=== PATIENT | male | born 1955 | race Caucasian/White ===

== ENCOUNTER 2018-01-20 10:40 | Emergency (ER) | payer BC ==
[2018-01-20 10:50] VITALS: BP 164/99
--- NOTE | 2018-01-20 11:15 | UC ---
Génesis Garcia Julia, scribed for Mack Dial MD on 01/20/18 at 1059 . Skin Complaint HPI - HPI Summary HPI Summary: A 62 year old M presents to [facility] with a chief complaint of worsening swelling and pain of the right neck for the past two days after a bug bit him. Pain is 3/10 in severity, upon triage. - History of Current Complaint Chief Complaint: UCSkin Time Seen by Provider: 01/20/18 10:53 Stated Complaint: SORE ON NECK Hx Obtained From: Patient Onset/Duration: Lasting Days Skin Exposure Onset/Duration: Days Ago Timing: Constant Onset Severity: Mild Current Severity: Moderate Pain Intensity: 3 Pain Scale Used: 0-10 Numeric Location: Other - right neck Character: Swelling, Pain Alleviating Factor(s): Nothing Related History: Possible Reaction to: Insect - Allergy/Home Medications Allergies/Adverse Reactions: Allergies Allergy/AdvReac Type Severity Reaction Status Date / Time No Known Allergies Allergy Verified 01/20/18 10:50 Home Medications: Home Medications Tiotropium CAP.INH* [Spiriva CAP.INH*] 1 puff .ROUTE DAILY 01/20/18 [History Confirmed 01/20/18] Review of Systems Constitutional: Negative Musculoskeletal: Edema - right neck, Myalgia - right neck All Other Systems Reviewed And Are Negative: Yes PMH/Surg Hx/FS Hx/Imm Hx Cancer History: Prostate Cancer - Surgical History Surgical History: Yes Surgery Procedure, Year, and Place: prostate - Family History Known Family History: Negative: Diabetes - Social History Alcohol Use: None Substance Use Type: None Smoking Status (MU): Former Smoker Physical Exam - Summary Physical Exam Summary: VITAL SIGNS: Reviewed. GENERAL: Patient is a well-developed and nourished malewho is lying comfortable in the stretcher. Patient is not in any acute respiratory distress. HEAD AND FACE: Normocephalic EYES: PERRLA, EOMI x 2. EARS: Hearing grossly intact. MOUTH: Oropharynx within normal limits. NECK: Supple, trachea is midline, no adenopathy, no JVD, no carotid bruit. CHEST: Symmetric, no tenderness at palpation LUNGS: Clear to auscultation bilaterally. No wheezing or crackles. CVS: Regular rate and rhythm, S1 and S2 present, no murmurs or gallops appreciated. ABDOMEN: Soft, non-tender. Bowel sounds are normal. No abdominal abnormal pulsations. EXTREMITIES: Full ROM in all major joints, no edema, no cyanosis or clubbing. NEURO: Alert and oriented x 3. No acute neurological deficits. Speech is normal and follows commands. SKIN: Dry and warm, Induration of skin to right side of the neck. No abscess formation at this point Triage Information Reviewed: Yes Vital Signs: Initial Vital Signs Temp 98.1 F 01/20/18 10:46 Pulse 91 01/20/18 10:46 Resp 18 01/20/18 10:46 BP 164/99 01/20/18 10:46 Pulse Ox 99 01/20/18 10:46 Vital Signs Reviewed: Yes Course/Dx - Course Course Of Treatment: Patient has an erythema and swelling and the skin induration without abscess formation on the right side of the neck. The patient will be given a prescription for Bactrim. For the cellulitis. Patient was instructed to return to the urgent care or go to the emergency department if the patient develops increasing swelling, pain and worsening of symptoms. - Diagnoses Provider Diagnoses: cellulitis Discharge - Sign-Out/Discharge Documenting (check all that apply): Discharge/Admit/Transfer - discharge - Discharge Plan Condition: Stable Disposition: HOME Prescriptions: Sulfamethox/Trimethoprim DS* [Bactrim DS 800/160 TAB*] 1 tab PO BID #20 tab Patient Education Materials: Cellulitis (ED) Referrals: Mervin Sanz MD [Primary Care Provider] - Additional Instructions: Take medications as instructed Increase your fluid intake Return to the if symptoms worsen - Billing Disposition and Condition Condition: STABLE Disposition: Home The documentation as recorded by the Génesis efrnandez Julia accurately reflects the service I personally performed and the decisions made by , Mack Dial MD.
== END 2018-01-20 11:04 | disposition home or self-care (01) ==
LOC: UCEAST 10:40
DX: L03.221 Cellulitis of neck (principal); Z87.891 Personal history of nicotine dependence
CPT/HCPCS: 99212; G0463

== ENCOUNTER 2018-02-25 10:37 | Emergency (ER) | payer BC ==
[2018-02-25 10:49] VITALS: BP 141/92
--- NOTE | 2018-02-25 11:42 | UC ---
Neck Pain HPI - HPI Summary HPI Summary: patient is complaining of pain in the back of his neck, feels swollen, pain behind the right ear and right side of throat, denies any fever, has been increasing over the last 4 days. No photosensitivity, no nuchal rigiditiy. - History of Current Complaint Chief Complaint: Rick Stated Complaint: NECK PAIN,HEADACHE Time Seen by Provider: 02/25/18 11:17 Hx Obtained From: Patient Onset/Duration Of Injury/Symptoms: Days Mechanism Of Injury: No Known Trauma Timing: Constant Onset/Duration: Sudden Onset, Lasting Days Severity: Moderate Pain Intensity: 6 Character: Aching Aggravating Factors: Movement Alleviating Factors: Nothing Associated Signs & Symptoms: Positive: Swelling, Redness, Headache - Allergies/Home Medications Allergies/Adverse Reactions: Allergies Allergy/AdvReac Type Severity Reaction Status Date / Time No Known Allergies Allergy Verified 02/25/18 10:49 PMH/Surg Hx/FS Hx/Imm Hx Previously Healthy: Yes - Surgical History Surgical History: Yes Surgery Procedure, Year, and Place: prostate - Family History Known Family History: Negative: Diabetes - Social History Alcohol Use: None Substance Use Type: None Smoking Status (MU): Former Smoker Review Of Systems Constitutional: Positive: Fatigue Skin: Positive: Negative Eyes: Positive: Negative ENT: Positive: Sore Throat, Ear Ache Cardiovascular: Positive: Negative Gastrointestinal: Positive: Negative Genitourinary: Positive: Negative Musculoskeletal: Positive: Negative Neurological: Positive: Headache Psychological: Positive: Negative All Other Systems Reviewed And Are Negative: Yes Physical Exam Triage Information Reviewed: Yes Appearance: Well-Nourished, Ill-Appearing, Pain Distress Vital Signs: Initial Vital Signs Temp 98.4 F 02/25/18 10:46 Pulse 101 02/25/18 10:46 Resp 18 02/25/18 10:46 BP 141/92 02/25/18 10:46 Pulse Ox 96 02/25/18 10:46 Vital Signs Reviewed: Yes Eye Exam: Normal ENT: Positive: Pharyngeal erythema - small tonsil stone in right tonsil Dental Exam: Normal Neck: Positive: Tenderness @ - over the psoterior musculature, Enlarged Nodes @ - right cervical Respiratory Exam: Normal Respiratory: Positive: Chest non-tender, Lungs clear, Normal breath sounds Cardiovascular Exam: Normal Cardiovascular: Positive: No Murmur, Pulses Normal, Tachycardia Abdominal Exam: Normal Abdomen Description: Positive: Nontender, No Organomegaly, Soft Bowel Sounds: Positive: Present Musculoskeletal: Positive: Strength Intact, ROM Intact, ROM Limited @, Edema @ - postieror neck feel slightly swollen Neurological Exam: Normal Psychological Exam: Normal Skin: Positive: Other - redness and swelling from base of neck to right side of neck under ear, slightly warm to touch Neck Pain Course/Dx - Course Course Of Treatment: hx obtained, exam performed ,meds reviewed, talked about plan of care with patient, agreed to treat infection at this time, recommend follow up at ER if not improving. - Differential Dx/Diagnosis Differential Dx/HQI/PQRI: Meningitis, Sprain, Strain, Other - cellulitis Provider Diagnoses: cellulitis of scalp and posterior neck Discharge - Sign-Out/Discharge Documenting (check all that apply): Patient Departure - Discharge Plan Condition: Stable Disposition: HOME Prescriptions: Cephalexin CAP* [Keflex CAP*] 500 mg PO TID #21 cap Patient Education Materials: Cellulitis (ED) Referrals: Mervin Sanz MD [Primary Care Provider] - Additional Instructions: You are presenting with signs of an infection on the skin of your neck. I am going to treat you with antibiotics. HOwever, If you are not improving in the next 24-48 hours I recommend you follow up with the ER or your Doctor on Tuesday. If the headache or eye pain gets worse, You develop any sensitivity to light, severe pain with head flexion go straight to the ER> otherwise, Increase your fluid intake, warm compresses to the neck and Ibuprofen or tylneol for headache. - Billing Disposition and Condition Condition: STABLE Disposition: Home
== END 2018-02-25 11:47 | disposition home or self-care (01) ==
LOC: UCEAST 10:37
DX: L03.811 Cellulitis of head [any part, except face] (principal); L03.221 Cellulitis of neck; R53.83 Other fatigue; J02.9 Acute pharyngitis, unspecified; H92.09 Otalgia, unspecified ear; R51 Headache; Z87.891 Personal history of nicotine dependence
CPT/HCPCS: 99212; G0463

== ENCOUNTER 2018-03-30 13:36 | Emergency (ER) | payer BC ==
[2018-03-30] MEDS ORDERED: NS 0.9% 1000 ML* 1,000 ML IV ONE (13:44)
--- NOTE | 2018-03-30 13:57 | ED ---
Neurological HPI - HPI Summary HPI Summary: A 62 y/o M brought in by car presents to ED with c/o L-sided facial droop at possible onset 1230, with last confirmed normal at 0845. Per emre: Pt has been having diffuse abd discomfort for two days without vomiting; as well as radiating back pain. He still had discomfort last night and this AM was still "off." He took Omaprozole approx. 0700 which seemed to help. Last known normal was at 0845 before the emre left for work. She called the pt at 1317 and his voice wasn't normal, he told her that he was trying to drink coffee and it wasn' t going into his mouth. He refused to call an ambulance, so the janette picked up the patient and brought him to the ED. The janette states pt's facial droop and impaired speech is "80% worse" from the 20 minute car ride. Pt states he noticed the sx at approx 1230 when he noticed he was dribbling out of his mouth , couldnt smile or wink. Associated sx: R ear muffled; malaise, nausea, impaired speech. Denies: UE and LE weakness, dysphagia, facial tingling, head trauma, recent falls. Denies medication, blood thinners. Per emre, pt has been taking Advil or Excedrin for the past few days due to CALDERA. Pt was seen at [facility] on 02/25 with dx R ear cellulitis. PMHx: caffeine-withdrawl CALDERA behind L eye, GERD, prostate CA; neg: CVA. Denies surgeries in past 6 months. Prostate surgery in 2009. Former smoker and former ETOH. Pt has no hx DM, HTN, and no recent viral infection, no current URI sxs. Dr. Trejo, neuro, at bedside at 1407. Vital signs while in room: HR 64 bpm, BP 170/129, O2 is 97%. Home Medications Medication Instructions Recorded Confirmed Type Albuterol inh POWDER (NF) [Proair 2 puff INH Q6HR PRN 03/30/18 03/30/18 History Respiclick] Cholecalciferol TAB* [Vitamin D 1,000 unit PO DAILY 03/30/18 03/30/18 History TAB*] Cyanocobalamin TAB* [Vitamin B12 1,000 mcg PO DAILY 03/30/18 03/30/18 History TAB*] LoraTADine TAB(NF) [Claritin 10 MG 10 mg PO DAILY PRN 03/30/18 03/30/18 History TAB(NF)] Multivitamins/Minerals TAB* 1 tab PO DAILY 03/30/18 03/30/18 History [Theragran/minerals TAB*] Tiotropium CAP.INH* [Spiriva 1 cap.inh INH DAILY 03/30/18 03/30/18 History CAP.INH*] Vitamin B Complex TAB* [B 1 tab PO DAILY 03/30/18 03/30/18 History Complex-50*] - History of Current Complaint Chief Complaint: EDNeurologicalDeficit Stated Complaint: LT SIDE WEAKNESS,POSS STROKE Hx Obtained From: Patient, Family/Bolt Sawyer - Lucy andrea Onset/Duration: Sudden Onset, Started hours ago, Still Present Timing: Constant Onset Severity: Moderate Current Severity: Moderate Neurological Deficit Location: Facial - Left Pain Intensity: 0 Pain Scale Used: 0-10 Numeric Character: Impaired Speech, Other: - L-sided facial droop Aggravating: Nothing Alleviating: Nothing Associated Signs and Symptoms: Positive: Impaired Speech, Nausea/Vomiting - pos : nausea; neg: vomiting, Recent Illness - R ear cellulitis - 1 month prior. Negative: Weakness TPA Considered: No - outside time frame - Allergy/Home Medications Allergies/Adverse Reactions: Allergies Allergy/AdvReac Type Severity Reaction Status Date / Time No Known Allergies Allergy Verified 02/25/18 10:49 Home Medications: Home Medications Albuterol inh POWDER (NF) [Proair Respiclick] 2 puff INH Q6HR PRN 03/30/18 [ History Confirmed 03/30/18] Cholecalciferol TAB* [Vitamin D TAB*] 1,000 unit PO DAILY 03/30/18 [History Confirmed 03/30/18] Cyanocobalamin TAB* [Vitamin B12 TAB*] 1,000 mcg PO DAILY 03/30/18 [History Confirmed 03/30/18] LoraTADine TAB(NF) [Claritin 10 MG TAB(NF)] 10 mg PO DAILY PRN 03/30/18 [ History Confirmed 03/30/18] Multivitamins/Minerals TAB* [Theragran/minerals TAB*] 1 tab PO DAILY 03/30/18 [ History Confirmed 03/30/18] Tiotropium CAP.INH* [Spiriva CAP.INH*] 1 cap.inh INH DAILY 03/30/18 [History Confirmed 03/30/18] Vitamin B Complex TAB* [B Complex-50*] 1 tab PO DAILY 03/30/18 [History Confirmed 03/30/18] PMH/Surg Hx/FS Hx/Imm Hx Previously Healthy: No Endocrine/Hematology History: Denies: Hx Diabetes Cardiovascular History: Denies: Hx Congestive Heart Failure, Hx Hypertension GI History: Reports: Hx Gastroesophageal Reflux Disease Neurological History: Reports: Hx Headaches - Cancer History Cancer Type, Location and Year: prostate Hx Chemotherapy: Yes - 2009 - Surgical History Surgery Procedure, Year, and Place: prostate Infectious Disease History: No Infectious Disease History: Denies: Traveled Outside the [place] in Last 30 Days - Family History Known Family History: Negative: Diabetes - Social History Occupation: Employed Full-time Lives: With Family - fiancee Alcohol Use: None Substance Use Type: Reports: None Hx Tobacco Use: Yes Smoking Status (MU): Former Smoker Review of Systems Positive: Other - pos: malaise Positive: Other - pos: muffled R ear; neg: dysphagia Positive: Abdominal Pain - "discomfort", Nausea. Negative: Vomiting Positive: Other - pos: back pain radiating from the abd discomfort Skin: Negative Neurological: Other - pos: L-sided facial droop; neg: facial tingling Positive: Slurred Speech - impaired speech. Negative: Weakness Psychological: Normal All Other Systems Reviewed And Are Negative: Yes Physical Exam - Summary Physical Exam Summary: Appearance: Well-appearing, no pain distress, well-nourished, able to walk to stretcher Skin: Warm, color reflects adequate perfusion, dry Head: left facial droop, atraumatic Eyes: Conjunctiva clear, unable to fully close left eye, PERRL EOMI ENT: Normal inspection Neck: Supple, no nodes, no JVD Respiratory: Lungs clear, normal breath sounds, no respiratory distress Cardio: RRR, No murmur, pulses normal, brisk capillary refill Abdomen: Soft, nontender Bowel sounds: Present Musculoskeletal: Strength Intact/ROM intact, no calf tenderness, no edema. Psychological: Normal Neuro: A&O x3, CN II-XII intact except for VII, motor function 5/5, sensation intact, cerebellar normal. Pt has L-sided facial droop with loss of forehead creases. Pt is unable to fully close L eye. GCS 15 NIH 1 for facial asymmetry Triage Information Reviewed: Yes Vital Signs On Initial Exam: Initial Vitals Temp Pulse Resp BP Pulse Ox 97.5 F 83 14 179/100 95 03/30/18 13:38 03/30/18 13:38 03/30/18 13:38 03/30/18 13:38 03/30/18 13:38 Vital Signs Reviewed: Yes - [place] Coma Scale Best Eye Response: 4 - Spontaneous Best Motor Response: 6 - Obeys Commands Best Verbal Response: 5 - Oriented Coma Scale Total: 15 Diagnostics - Vital Signs Vital Signs Temp Pulse Resp BP Pulse Ox 03/30/18 13:38 97.5 F 83 14 179/100 95 - Laboratory Result Diagrams: 03/30/18 14:00 03/30/18 14:00 Lab Statement: Any lab studies that have been ordered have been reviewed, and results considered in the medical decision making process. - Radiology CXR Xray Interpretation: No Acute Changes - IMPRESSION: No active cardiopulmonary dz. ED provider has reviewed this report. Radiology Interpretation Completed By: Radiologist - CT BRAIN CT Interpretation: No Acute Changes - IMPRESSION: NO ACUTE INTRACRANIAL PATHOLOGY. PRELIMINARY FINDINGS WERE DISCUSSED WITH DR. BARTH IN THE EMERGENCY DEPARTMENT AT APPROXIMATELY 1:52 PM ON 2017. ED provider has reviewed this report. CT Interpretation Completed By: Radiologist - EKG 14:07 Cardiac Rate: NL - 67bpm EKG Rhythm: Sinus Rhythm ST Segment: Non-Specific Ectopy: PACs EKG Interpretation: An EKG at [address], nml QTc, and nml axis. EKG Comparison: No Significant Change - from 03/15/15 - Additional Comments Diagnostic Additional Comments: BRAIN MRI: as read by radiologist: IMPRESSION: 1. THERE ARE MULTIPLE, SCATTERED, SMALL FOCI OF ELEVATED T2/FLAIR SIGNAL WITHIN THE PERIVENTRICULAR AND SUBCORTICAL WHITE MATTER. WHILE THESE FINDINGS ARE NONSPECIFIC, THEY CAN BE SEEN IN ASSOCIATION WITH MIGRAINE HEADACHE, THE SEQUELA OF PREVIOUS INFECTION OR INFLAMMATION, AND CHRONIC SMALL VESSEL ISCHEMIA. DEMYELINATING DISEASE IS ALSO WITHIN THE DIFFERENTIAL, BUT IS CONSIDERED LESS LIKELY IN THE ABSENCE OF THE APPROPRIATE CLINICAL PRESENTATION. 2. THERE IS NO RESTRICTED DIFFUSION TO SUGGEST ACUTE INFARCT. ED provider has reviewed this report. NIH Scale - NIH Scale Level of Consciousness: Alert/Keenly Responsive Ask Patient the Month and His/Her Age: Both Correct Ask Pt to Open/Close Eyes and Winder Operator/Release Non-Paretic Hand: Both Correctly Best Gaze (Only Horizontal Eye Movement): Normal Visual Field Testing: No Visual Loss Facial Paresis-Pt to Smile & Close Eyes or Grimace Symmetry: Minor Paralysis Motor Function - Right Arm: No Drift-Holds 10 Seconds Motor Function - Left Arm: No Drift-Holds 10 Seconds Motor Function - Right Leg: No Drift-Holds 10 Seconds Motor Function - Left Leg: No Drift-Holds 10 Seconds Limb Ataxia-Must be out of Proportion to Weakness Present: Absent Sensory (Use Pinprick to Test Arms/Legs/Trunk/Face): Normal Best Language (Describe Picture, Name Items): No Aphasia Dysarthria (Read Several Words): Normal Extinction and Inattention: No Abnormality Total Score: 1 Re-Evaluation - Re-Evaluation 1 Re-Evaluation Time: 15:34 Change: Unchanged 2 Re-Evaluation Time: 16:32 Change: Improved Comment: Discussed plan to D/C, medication and necessary follow up with Dr. Trejo. Pt voiced understanding. Pt's janett Ayala, and brother are with pt. Course/Dx - Course Course Of Treatment: Pt is a 62 y/o M brought by private car presenting with L- sided facial droop and impaired speech. Last known normal was 0845, seen by emre. Bobby Casey called at 1344. Pt was outside [facility] window upon detailed questioning. CT brain, no acute findings per Dr. Durán at 1352. Dr. Trejo present at bedside 1407. 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 MRI brain ordered. No change in pt's neuro exam. Will treat Ascencio's with IV steroids, then medrol dosepak and valacyclovir. Allergies noted. Pt medications reviewed this visit. High blood pressure noted. - Differential Dx Differential Diagnoses Neuro: Positive: Ascencio's Palsy, Cerebrovascular Accident, Transient Ischemic Attack - Diagnoses Provider Diagnoses: Elevated blood pressure reading without diagnosis of hypertension, Ascencio's palsy During the Visit The Following Alert/Code Occurred: Bobby Solis - Called at 1344 - Physician Notifications Discussed Care Of Patient With: Gregory Durán - radiology Time Discussed With Above Provider: 13:51 Instructed by Provider To: Other - Initial review of CT is negative for stroke. Discharge - Sign-Out/Discharge Documenting (check all that apply): Patient Departure - DC - Discharge Plan Condition: Stable Disposition: HOME Prescriptions: Artificial Tears* 15 ML BTL [Polyvinyl Alcohol 1.4% OPTH*] 1 drop LEFT EYE Q2H PRN #1 btl PRN Reason: Pain methylPREDNISolone [Medrol] 4 mg PO .SEE REGI INSTRUCTION #1 tab.ds.pk Mineral Oil/Petrolatum,White [Akwa Tears] 1 inch OP BEDTIME #1 tube ValACYclovir (*) [Valtrex 1 GM(*)] 1 gm PO TID #30 tab Patient Education Materials: Ascencio Palsy (ED) Referrals: Leonor Trejo MD [Medical Doctor] - 7 Days Mervin Sanz MD [Primary Care Provider] - 2 Days Additional Instructions: Follow up with Dr. Trejo, neurology, in his office, definitely, within [address] Sanz in follow up and consider physical therapy for the Ascencio's Palsy. Take the medrol dose regi (steroid) and valacyclovir (antiviral medication) as directed. Patch your left eye and use artificial tears and lubricant in your eye to prevent a corneal ulcer because your left eye does not close completely. RETURN TO THE EMERGENCY DEPARTMENT FOR CHANGING OR WORSENING SYMPTOMS - Billing Disposition and Condition Condition: STABLE Disposition: Home - Attestation Statements Document Initiated by Efraín: Yes Documenting Scribe: Aubrie Huffman Provider For Whom Leanaibe is Documenting (Include Credential): Dr. Silvana Barth MD Scribe Attestation: Aubrie Garcia, scribed for Dr. Silvana Barth MD on 03/31/18 at 0455. Scribe Documentation Reviewed: Yes Provider Attestation: The documentation as recorded by the Aubrie fernandez accurately reflects the service I personally performed and the decisions made by me, Dr. Silvana Barth MD Consult Consult: AT 1357: CONSULT WITH DR. TREJO NEURO to see pt in ED. AT 1533: CONSULT WITH DR. TREJO NEURO Confirming review of MRI. He approves the read and the plan to continue to treat as Ascencio's Palsy.
--- NOTE | 2018-03-30 13:57 | RAD ---
HISTORY: Neurological changes/code marques COMPARISONS: March 15, 2015 TECHNIQUE: Multiple contiguous axial CT scans were obtained of the head without intravenous contrast. FINDINGS: HEMORRHAGE/INFARCT: There is no hemorrhage or acute infarct. MASSES/SHIFT: There is no mass or shift. EXTRA-AXIAL SPACES: There are no extra-axial fluid collections. SULCI AND VENTRICLES: The sulci and ventricles are normal in size and position for the patient's stated age. CEREBRUM: There are no focal parenchymal abnormalities. BRAINSTEM: There are no focal parenchymal abnormalities. CEREBELLUM: There are no focal parenchymal abnormalities. VESSELS: The vessels are grossly normal. PARANASAL SINUSES: The paranasal sinuses are clear. ORBITS: The orbits are unremarkable. BONES AND SOFT TISSUE: No bone or soft tissue abnormalities are noted. OTHER: None IMPRESSION: NO ACUTE INTRACRANIAL PATHOLOGY. PRELIMINARY FINDINGS WERE DISCUSSED WITH DR. BARTH IN THE EMERGENCY DEPARTMENT AT APPROXIMATELY 1:52 PM ON 2017 .
[2018-03-30 14:18] LABS: ABS Basophils 0.1 10^3/ul (0-0.2); ABS Eosinophils 0 10^3/ul (0-0.6); ABS Lymphocytes 2.6 10^3/ul (1.0-4.8); ABS Monocytes 0.8 10^3/ul (0-0.8); ABS Neutrophils 5.1 10^3/ul (1.5-7.7); ABS Nucleated RBC 0 10^3/ul; Eosinophil % 0.5 % (0-6); Hematocrit 44 % (42-52); Hemoglobin 14.5 g/dl (14.0-18.0); Lymphocyte % 30.5 % (25-47); Mean Corpuscular HGB Conc 33 g/dl (31-36); Mean Corpuscular Hemoglobin 30 pg (27-31); Mean Corpuscular Volume 90 fL (80-94); Mean Platelet Volume 7.6 um3 (7.4-10.4); Nucleated Red Blood Cells % 0.1; Platelet Count 285 10^3/ul (150-450); Red Blood Count 4.86 10^6/ul (4.00-5.40); Red Cell Distribution Width 14 % (10.5-15); White Blood Count 8.7 10^3/ul (3.5-10.8)
[2018-03-30] MEDS ORDERED: methylPREDNISolone SOD SUCC* 500 MG VIAL IVPB ONE (14:22)
[2018-03-30 14:24] LABS: INR 0.92 (0.77-1.02)
[2018-03-30 14:37] LABS: EGFR Non-African American 78.9 (>60)
--- NOTE | 2018-03-30 14:48 | RAD ---
Indication: Neurologic changes. Single frontal view of the chest performed at 1435 hours was reviewed. Comparison is made with previous exam dated March 15, 2015. No mediastinal shift is noted. Heart is of normal size and configuration. Lung duran appear clear. Lung duran appear hyperinflated. IMPRESSION: NO ACTIVE CARDIOPULMONARY DISEASE IS NOTED.
--- NOTE | 2018-03-30 15:15 | RAD ---
HISTORY: left facial droop, Ascencio's COMPARISONS: Head CT dated March 30, 2018 TECHNIQUE: The following sequences were obtained of the head: Sagittal T1-weighted images, axial T2-weighted images, axial FLAIR images, axial susceptibility weighted images, axial T1-weighted images. Additionally, axial diffusion-weighted images were obtained with calculated apparent diffusion coefficients. FINDINGS: HEMORRHAGE/INFARCT: There is no hemorrhage or acute infarct. MASSES/SHIFT: There is no mass or shift. EXTRA-AXIAL SPACES/MENINGES: There are no extra-axial fluid collections. SULCI AND VENTRICLES: The sulci and ventricles are normal in size and position for the patient's stated age. CEREBRUM: There are multiple scattered small foci of elevated T2/FLAIR signal within the periventricular and subcortical white matter. BRAINSTEM: There are no focal parenchymal abnormalities. CEREBELLUM: There are no focal parenchymal abnormalities. The cerebellar tonsils are normal in size and position. SELLA: The sella is normal. PINEAL: The pineal region is clear. CP ANGLE/TEMPORAL BONES: The labyrinthine structures are grossly normal. VESSELS: Normal flow-voids are noted within the visualized vertebral vasculature. DIFFUSION ABNORMALITIES: There are no diffusion abnormalities. PARANASAL SINUSES/MASTOIDS: The paranasal sinuses are clear. ORBITS: The orbits are unremarkable. BONES AND SOFT TISSUE: No bone or soft tissue abnormalities are noted. OTHER: None IMPRESSION: 1. THERE ARE MULTIPLE, SCATTERED, SMALL FOCI OF ELEVATED T2/FLAIR SIGNAL WITHIN THE PERIVENTRICULAR AND SUBCORTICAL WHITE MATTER. WHILE THESE FINDINGS ARE NONSPECIFIC, THEY CAN BE SEEN IN ASSOCIATION WITH MIGRAINE HEADACHE, THE SEQUELA OF PREVIOUS INFECTION OR INFLAMMATION, AND CHRONIC SMALL VESSEL ISCHEMIA. DEMYELINATING DISEASE IS ALSO WITHIN THE DIFFERENTIAL, BUT IS CONSIDERED LESS LIKELY IN THE ABSENCE OF THE APPROPRIATE CLINICAL PRESENTATION. 2. THERE IS NO RESTRICTED DIFFUSION TO SUGGEST ACUTE INFARCT.
[2018-03-30] MEDS ORDERED: METHYLPREDNISOLONE SOD SUCC IVPB ONE (16:00)
[2018-03-30] MEDS ORDERED: NS 0.9% IVPB ONE (16:00)
[2018-03-30 16:02] LABS: Urine Appearance Clear; Urine Blood Negative (Negative); Urine Color Straw; Urine Ketones 1+ (Negative); Urine Protein Negative (Negative); Urine Specific Gravity 1.003 (1.010-1.030); Urine Urobilinogen Negative (Negative)
[2018-03-30 17:23] VITALS: BP 157/85
--- NOTE | 2018-03-30 23:30 | CONS ---
CONSULTATION REPORT: DATE OF CONSULT: 03/30/18 LOCATION: He is currently in the ER, bed 6. PRIMARY CARE PHYSICIAN: Mervin Sanz MD REASON FOR CONSULT: Bobby casey, facial droop. HISTORY OF PRESENT ILLNESS: Mr. Perez is a 62-year-old gentleman, very pleasant, who has a history of prostate cancer. Denies a history of hypertension, hyperlipidemia, diabetes, prior stroke, or heart attack. He had prostate surgery back in 2009, subsequent radiation therapy in 2013, and he states that recently his PSA has been elevated and they are talking about what to do next, but no decisions have been made. He also has a history of cellulitis of the right neck. He has been seen in the ER 2 times back in January of 2018, again in February of 2018. At that time, he was treated with antibiotics with improvement of the cellulitis in the right neck. He believes that this is from a bird bite. He has history of some headaches, which he thinks are caffeine withdrawal headaches. They typically happen when he does not drink coffee. He has also noticed some stuffiness in his left ear recently. Yesterday evening, he was complaining of some abdominal pain and did not sleep well. This morning, his significant other saw him at around 8:45 last normal. Sometime between then at 12:45 to 1, he developed drooping of his left face. His significant other states that she talked to him on the phone around that time and noticed that his speech was more slurred. He was brought to the ER at that time and CT scan was negative for acute changes. He was noted by the ER physician to have weakness of the upper and lower face. He denied any other weakness, numbness, tingling. He denied any chest pain, shortness of breath, dyspnea on exertion. He states he occasionally has left shoulder and arm pain, but it is intermittent and none currently. He denied any recent upper respiratory illnesses or viral illnesses that he is aware of. He denied any falls or head trauma. He has otherwise been in his usual state of health. His initial NIH Stroke Scale was 1 for some facial drooping. A Bobby Casey was called and I was called to evaluate the patient. PAST MEDICAL HISTORY: As noted above. PAST SURGICAL HISTORY: Includes prostate cancer. MEDICATIONS AT HOME: 1. Vitamin B complex. 2. Multivitamin. 3. Loratadine. 4. Vitamin B12 tablet. 5. Vitamin D tablet. 6. Albuterol inhaler. 7. . ALLERGIES: No known drug allergies. FAMILY HISTORY: Noncontributory. SOCIAL HISTORY: He is a cook. He was a previous smoker, none in 7 years. He stopped drinking 7 years ago. He denies any illicit substance use. He lives with his significant other. REVIEW OF SYSTEMS: Review of systems in 14-organ systems was done, as noted above, otherwise negative. PHYSICAL EXAM: Vital Signs: Temp of 97.5, blood pressure 141/92 to 179/100, heart rate of 73, respiratory rate of 17, O2 sat of 98% on room air. In general , he is a well-nourished, well-developed gentleman, in no acute distress. He is lying in his hospital bed. He is somewhat nervous about his presentation. He is well dressed, well groomed. HEENT: He is normocephalic, atraumatic. Sclerae are anicteric. Mucous membranes are moist. Oropharynx is clear. Nares are patent. Neck is supple. No thyromegaly. No carotid bruits. No meningismus. His ears are clear. Tympanic membranes are opaque and clear. No fluid present. No erythema. His chest is clear to auscultation bilaterally. Cardiovascular is regular rate and rhythm without murmurs. Abdomen is nontender , nondistended. Extremities: No clubbing, cyanosis, or edema. Skin is warm and dry without lesions. On neurologic exam, he is awake, alert, and oriented x3. His speech is fluent. There is no dysarthria. Repetition is intact. Recall of recent and remote events is intact. Vocabulary is intact. His mood is dysthymic. Affect, mood congruent. Cranial nerves II through XII: Pupils are equal, round and reactive to light and accommodation. Extraocular movements are intact in all quadrants. Visual duran are full to confrontation. His facial sensation is intact throughout. He has droop of his left upper and lower face with flattening of his nasolabial fold, flattening of his forehead, wrinkling, unable to raise his eyebrow on the left side, unable to completely close his eye on the left side. No Ascencio's phenomenon was appreciated. His hearing, he states, is muffled on the left side. He has no hyperacusis. No changes in his taste. His palate raises symmetrically. Uvula is midline. Tongue is midline. Sternocleidomastoid and trapezius are 5/5. Motor Exam: 5/5 throughout. There is no drift in the upper or lower extremities. Tone and bulk are both normal and good. Sensation is intact to light touch and pinprick in the upper and lower extremities bilaterally. No focal deficits. DTRs are 2+ and symmetric in the upper and lower extremities with the equivocal Babinski bilaterally. [id number] and rapid alternating movements are significant for a mild intention tremor bilaterally. Heel-to- morillo is normal. His gait was not tested, but he did walk into the ER unassisted and states that he has had no problems walking. DIAGNOSTIC STUDIES/LAB DATA: CBC with diff is essentially normal with a monocyte percent of 9.7. Other labs are pending. CT scan as noted above. ASSESSMENT AND PLAN: Mr. Perez is a 62-year-old gentleman with no significant stroke risk factors, who has a history of prostate cancer, status post resection in 2009, status post radiation therapy in 2013 and most recently with an elevated PSA. He also has a history of recent cellulitis of the right neck, which appears well healing. No significant erythema or redness at this time. 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 I see no evidence otherwise for a stroke and my suspicion is very low. We are going to get an MRI of the brain to make sure and if it is negative, he will be sent home on steroids and valacyclovir. He is going to get a dose of Solu-Medrol 250 mg IV now. 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 We discussed the fact that in 70% to 80% patients, there is partial or complete recovery, sometimes there are permanent residual deficits. We can do physical therapy for that as well. We discussed the fact that the evidence is scant regarding treatment with steroids and valacyclovir, but we are going to be aggressive and try anyway in the hopes that it will help moderate the disease. He can follow up with me in clinic as an outpatient in 6 to 8 weeks. I did discuss with him the fact that he needs to patch his eye at night, use lubricating drops to keep his eye moist. Thank you for the opportunity to participate in the care of this very nice patient. [id number]/[facility] #: [id number] [place]
== END 2018-03-30 17:18 | disposition home or self-care (01) ==
LOC: ED 13:36
DX: G51.0 Bell's palsy (principal); R03.0 Elevated blood-pressure reading, without diagnosis of hypertension; Z85.46 Personal history of malignant neoplasm of prostate; Z87.891 Personal history of nicotine dependence
CPT/HCPCS: 36415; 70450; 70551; 71045; 80053; 80061; 81003; 83605; 84484; 85025; 85610; 85730; 86850; 86900; 86901; 93005; 96361; 96374; 99284; J2930

== ENCOUNTER 2024-02-04 17:07 | Observation (INO) ==
[2024-02-04] MEDS: NS 0.9% 1000 ml BAG 1,000 ML IV ONE (17:25)
[2024-02-04 17:33] LABS: Hematocrit 33.6 % (38-53); Hemoglobin 11.3 g/dL (13.2-16.3); Mean Corpuscular Hgb Conc 33.5 g/dL (31-36); Mean Corpuscular Volume 86.7 fL (80-97); Red Blood Count 3.87 10^6/uL (4.06-5.63); Red Cell Distribution Width 15.4 % (12-17); White Blood Count 7.4 10^3/uL (3.6-10.2)
[2024-02-04 17:36] LABS: INR 1.36 (0.83-1.13)
[2024-02-04] MEDS: Piperacillin/Tazobac 3.375 BAG 3.375 GM/100 ML BAG IV ONE (17:44)
[2024-02-04] MEDS: Acetaminophen IV 1 GM/100ML 1,000 MG/100 ML BAG IV ONE (17:56)
[2024-02-04] MEDS: Vancomycin 2,000 MG in NS 0.9% 500 ml BAG 500 ML IVPB ONE (18:28)
[2024-02-04 18:30] LABS: Albumin 3.2 g/dL (3.2-5.2); Albumin/Globulin Ratio 1.2 (1-3); Creatinine, Serum 1.22 mg/dL (0.67-1.17); Globulin 2.6 g/dL (2-4); Total Protein 5.8 g/dL (6.4-8.9); eGFR CKD-EPI 65.4 (>60)
[2024-02-04] MEDS: Lactated Ringers 1000 ml BAG IV.FLUID IV ONE (18:56)
[2024-02-04 18:57] LABS: High Sensitivity Troponin 1 Hr 13 pg/mL (<20)
[2024-02-04 18:58] LABS: TSH Ultra Thyroid Stim Horm 1.32 mcIU/mL (0.34-5.60)
[2024-02-04 18:59] LABS: Magnesium 2.3 mg/dL (1.9-2.7); Potassium 4.2 mmol/L (3.5-5.0)
[2024-02-04 19:08] LABS: Platelet Count 64 10^3/uL (150-450)
[2024-02-04 19:20] LABS: ABS Basophils 0.1 10^3/uL (0.0-0.1); ABS Lymphocytes 1.8 10^3/uL (1.0-4.8); ABS Monocytes 1.1 10^3/uL (0.0-1.1); ABS Neutrophils 4.5 10^3/uL (1.5-7.6); ABS Nucleated RBC 0.01 10^3/ul; Lymphocyte % 24.4 %; Nucleated Red Blood Cells % 0.1 %/100WBC (0.0-0.8); Parasites Present; RBC Morphology Normal (Normal)
[2024-02-04 19:51] LABS: RBC Parasite Smear POSITIVE (No Parasite)
[2024-02-04] MEDS: Azithromycin 500 mg/250 ml NS 500 MG/250 ML BAG IVPB ONE (20:48)
[2024-02-04 21:34] LABS: Urine Appearance Turbid; Urine Bilirubin Negative (Negative); Urine Blood Trace (Negative); Urine Color Yellow; Urine Glucose Negative (Negative); Urine Ketones Negative (Negative); Urine Nitrite Negative (Negative); Urine Protein Trace (Negative); Urine Specific Gravity 1.012 (1.002-1.030); Urine Urobilinogen Negative (Negative); Urine pH 5.5 (5.0-8.0)
[2024-02-04] MEDS: Enoxaparin 40 MG/0.4 ML SYR SUBCUT SCH (22:05)
[2024-02-04] MEDS ORDERED: Albuterol HFA INHALER 8 gm MDI INH PRN (22:17)
[2024-02-05] MEDS: Lactated Ringers 1000 ml BAG 500 ML IV ONE (06:38)
[2024-02-05 06:47] LABS: Hematocrit 27.6 % (38-53); Hemoglobin 9.7 g/dL (13.2-16.3); Mean Corpuscular Hemoglobin 30.2 pg (27-33); Mean Corpuscular Volume 86.3 fL (80-97); Mean Platelet Volume 10.2 fL (7.5-11.2); Platelet Count 58 10^3/uL (150-450); Red Cell Distribution Width 15.5 % (12-17); White Blood Count 5.2 10^3/uL (3.6-10.2)
[2024-02-05] MEDS: LACTATED RINGERS 1000 ML BAG IV SCH (07:14)
[2024-02-05 07:49] LABS: ALT 40 U/L (7-52); Albumin 2.5 g/dL (3.2-5.2); Albumin/Globulin Ratio 1.1 (1-3); Alkaline Phosphatase 68 U/L (35-149); Anion Gap 5 mmol/L (2-16); Blood Urea Nitrogen 25 mg/dL (6-24); C Reactive Protein 128.58 mg/L (<8.01); CO2 Carbon Dioxide 30 mmol/L (22-32); Calcium 7.2 mg/dL (8.6-10.3); Chloride 99 mmol/L (101-111); Creatinine, Serum 0.94 mg/dL (0.67-1.17); Globulin 2.3 g/dL (2-4); Glucose 106 mg/dL (70-100); Sodium 134 mmol/L (135-145); Total Bilirubin 1.2 mg/dL (0.2-1.0); Total Protein 4.8 g/dL (6.4-8.9); eGFR CKD-EPI 89.4 (>60)
[2024-02-05 08:17] LABS: ABS Lymphocytes 1.7 10^3/uL (1.0-4.8); ABS Monocytes 1.2 10^3/uL (0.0-1.1); ABS Neutrophils 2.4 10^3/uL (1.5-7.6); Eosinophil % 0.2 %; Nucleated Red Blood Cells % 0.1 %/100WBC (0.0-0.8); RBC Morphology Normal (Normal)
[2024-02-05] MEDS: CMCS: FLUTICAS/UMECLI/VILANT 100-62.5-25 MDI (NF) INH SCH (09:36)
[2024-02-05] MEDS: Azithromycin 500 mg/250 ml NS 500 MG/250 ML BAG IVPB SCH (19:37)
[2024-02-06 07:16] LABS: Potassium Redraw 3.9 mmol/L (3.5-5.0)
[2024-02-06 07:17] LABS: Calcium 7.5 mg/dL (8.6-10.3); Creatinine, Serum 0.87 mg/dL (0.67-1.17); Potassium 3.9 mmol/L (3.5-5.0); eGFR CKD-EPI 95.2 (>60)
[2024-02-06 07:45] LABS: Hematocrit 28.5 % (38-53); Hemoglobin 9.8 g/dL (13.2-16.3); Mean Corpuscular Hemoglobin 29.9 pg (27-33); Mean Corpuscular Hgb Conc 34.5 g/dL (31-36); Mean Corpuscular Volume 86.6 fL (80-97); Red Blood Count 3.29 10^6/uL (4.06-5.63); Red Cell Distribution Width 15.7 % (12-17); White Blood Count 5.3 10^3/uL (3.6-10.2)
[2024-02-06 08:58] LABS: ABS Lymphocytes 1.4 10^3/uL (1.0-4.8); ABS Monocytes 0.8 10^3/uL (0.0-1.1); ABS Nucleated RBC 0.01 10^3/ul; Eosinophil % 0.2 %; Lymphocyte % 27.3 %; Mean Platelet Volume 10.2 fL (7.5-11.2); Nucleated Red Blood Cells % 0.1 %/100WBC (0.0-0.8); Platelet Count 76 10^3/uL (150-450)
[2024-02-06 08:59] LABS: RBC Morphology Normal (Normal)
[2024-02-06 14:12] VITALS: BP 146/76
[2024-02-08 20:20] LABS: Anaplasma phagocytophilum Negative (Negative); B. miyamotoi PCR, B Negative (Negative); Babesia divergens/MO-1 Negative (Negative); Babesia ducani Negative (Negative); Ehrlichia chaffeensis Negative (Negative); Ehrlichia ewingii/canis Negative (Negative); Ehrlichia muris eauclairensis Negative (Negative)
== END 2024-02-06 16:40 | disposition home or self-care (01) ==
LOC: EDHOLD 17:07 → ED 17:07 → SUATTDRO 21:44 → MED 02-05 10:39
PROVIDERS: ADMIT Internal Medicine; ATTEND Internal Medicine